=== PATIENT | female | born 1990 | race Caucasian/White ===

== ENCOUNTER 2020-07-10 09:19 | Emergency (ER) | payer SELFPAY ==
[~2020-07-10] VITALS: Ht 162.6 cm; Wt 99.8 kg
[2020-07-10 09:34] VITALS: BP_SYST 130
== END 2020-07-10 10:22 | disposition left against medical advice (07) ==
LOC: SED 09:19
DX: R11.2 Nausea with vomiting, unspecified (principal); R55 Syncope and collapse; Z53.21 Procedure and treatment not carried out due to patient leaving prior to being seen by health care provider